=== PATIENT | male | born 1970 | race African-American/Black ===

== ENCOUNTER 2016-08-13 13:49 | Emergency (ER) | payer SELFPAY ==
[~2016-08-13] VITALS: Ht 175.3 cm; Wt 77.1 kg
[2016-08-13 14:11] VITALS: BP 135/87
--- NOTE | 2016-08-13 14:13 | Emergency Room Report ---
History of Present Illness General Chief Complaint: Multiple Trauma/Fall Source: Patient Present Illness HPI 45 y/o male complains of right-sided jaw pain for 2 days. States that his likes to keep the house work and was walking in a dark room. States that when he went to sit down he missed the chair and ended up hitting his right jaw on the table. Since that his pain is currently a 10 and worse with palpation and movement of the jaw. States he developed a "bump" under right jaw. States that he has not taken any by mouth medications but feels better with ice. Denies any other medical problems. Denies any dental fractures. Patient denies any numbness, tingling, pressure, paralysis, cyanosis, bruising, loss of sensation, or loss of range of motion. Allergies: Coded Allergies: No Known Allergies (Unverified , 08/13/16) Patient History Past Medical History: see triage record Past Surgical History: none Pertinent Family History: none Immunizations: UTD Reviewed Nursing Documentation: PMH: Agreed, PSxH: Agreed Nursing Documentation-PMH Past Medical History: No Stated History Review of Systems All Other Systems: negative except mentioned in HPI Physical Exam Vital Signs Date Time Temp Pulse Resp B/P Pulse Ox O2 Delivery O2 Flow Rate FiO2 08/13/16 13:56 99.3 65 15 135/87 100 Room Air Sp02 EP Interpretation: reviewed, normal General Appearance: normal inspection Head: normocephalic, atraumatic Eyes: bilateral eye PERRL, bilateral eye normal inspection ENT: hearing grossly normal, normal pharynx, no angioedema, normal voice, TMs + canals normal, other - tenderness right mandible with palpable mass ( questionable hematoma) Neck: full range of motion, no bony tend, supple/symm/no masses Respiratory: chest non-tender, lungs clear, normal breath sounds, speaking full sentences Cardiovascular #1: regular rate, rhythm, no edema Musculoskeletal: normal inspection, back normal, gait/station normal Neurologic: alert, oriented x3, responsive, motor strength/tone normal, sensory intact, speech normal Psychiatric: judgement/insight normal, memory normal, mood/affect normal, no suicidal/homicidal ideation Skin: normal color, no rash, warm/dry, well hydrated Medical Decision Making PA Attestation Dr. Ocasio is my supervising physician with whom patient management has been discussed with. Diagnostic Impression: Primary Impression: Jaw pain, non-TMJ Additional Impression: Contusion Qualified Codes: S00.532A - Contusion of oral cavity, initial encounter ER Course Pt. presents to the ED c/o jaw injury Ddx considered but are not limited to contusion, mandible fracture, tooth fracture, chipped tooth, dental caries, dental infection, tooth abscess, tooth avulsion Vital signs: are WNL, pt. is afebrile H&PE are most consistent with contusion of jaw ORDERS: XR Mandible ED INTERVENTIONS: none required at this time. DISCHARGE: At this time pt. is stable for d/c to home. Will provide printed patient care instructions, and any necessary prescriptions. Care plan and follow up instructions have been discussed with the patient prior to discharge. Chest X-Ray Diagnostic Results Chest X-Ray Ordered: No Other X-Ray Diagnostic Results X-Ray ordered: XR Mandible # of Views/Limited Vs Complete: 4 View Interpretation: no fractures, no dislocation Indication: Pain Impression: No acute disease Date Electronically Signed: Aug 13, 2016 Time Electronically Signed: 15:30 Electronically Signed by: Dr. Ocasio Last Vital Signs Date Time Temp Pulse Resp B/P Pulse Ox O2 Delivery O2 Flow Rate FiO2 08/13/16 13:56 99.3 65 15 135/87 100 Room Air Status: unchanged Disposition: HOME, SELF-CARE Condition: Stable Scripts Naproxen* (NAPROXEN*) 500 Mg Tablet 500 MG ORAL BID, #20 TAB 0 Refills Prov: ABIMBOLA REED 08/13/16 Patient Instructions: Contusion Additional Instructions: Take medication as directed. Patient advised to follow up with primary care provider within next 3-5 days if no improvement of symptoms. Advised patient to use RICE therapy and nsaids as prescribed. Patient is to go to the ER immediately if they experience any pain that is not responding to medication, excess swelling, pressure feeling, loss of color, cyanosis, paralysis, or numbness. ABIMBOLA REED Aug 13, 2016 14:13
[2016-08-13 15:42] VITALS: BP 132/85
[2016-08-13 15:43] VITALS: BP 132/85
[2016-08-13] MEDS ORDERED: NAPROXEN500 M2 ORAL (15:45)
--- NOTE | 2016-08-15 11:39 | Diagnostic Imaging Report ---
Indication: PAIN Technique: 4 views of the mandible Comparison: None Findings: No acute fractures. No dislocations. Impression: Negative This agrees with the preliminary interpretation provided by the emergency room physician
== END 2016-08-13 16:06 | disposition home or self-care (01) ==
LOC: EMR 14:26
DX: R68.84 Jaw pain (principal); S00.532A Contusion of oral cavity, initial encounter; W22.8XXA Striking against or struck by other objects, initial encounter; Y93.9 Activity, unspecified; Y92.009 Unspecified place in unspecified non-institutional (private) residence as the place of occurrence of the external cause
CPT/HCPCS: 70110; 99284